=== PATIENT | male | born 1940 | race Caucasian/White ===

== ENCOUNTER 2018-10-26 11:38 | Observation (INO) ==
[2018-10-26] MEDS ORDERED: amLODIPine 10 MG Tablet PO ONE (12:42)
--- NOTE | 2018-10-26 12:49 | ED ---
HPI General Chief Complaint: Chest Pain Stated Complaint: Chest Pain/BP Complaint Time Seen by Provider: 10/26/18 12:24 History of Present Illness HPI narrative: This patient complains of chest discomfort. He had a sternal tightness and heaviness last night. There was a bit of discomfort in his left arm as well. He is not having that now. Symptoms are not exertional. He reports history of a cardiac stent. He had a stress test 2 years ago he says. No fever or productive cough or dyspnea. He does have some dyspepsia type issues. He is having a lot of belching and gas last night. Duration 15 hours. Severity is moderate. No alleviating factors. No exacerbating factors. Related Data Home Medications Medication Instructions Recorded Confirmed latanoprost 1 drp OPHTHALMIC (EYE) QPM 10/26/18 10/26/18 Allergies Allergy/AdvReac Type Severity Reaction Status Date / Time No Known Allergies Allergy Verified 10/26/18 11:44 Review of Systems ROS: all other systems reviewed are negative [facility] Medical History Medical History Patient denies medical problems (Acute) Surgical History Surgical History H/O heart artery stent (Acute) Social History Social History Substance History: No History of Abuse Smoking Status: Former smoker How Often Do You Have a Drink Containing Alcohol: Never Recent Travel in [facility] within the Last 8 Weeks: No Recent Out of Country Travel within the Last 8 Weeks: No Immunization History Tetanus Immunization: <5 Years Exam Narrative Exam Narrative: GENERAL: Well-nourished, well-developed patient in no apparent distress. SKIN: Focused skin assessment reveals no rash and nodules. Skin is Warm and dry. HEAD: Atraumatic. Normocephalic. EYES: Pupils equal and round. No scleral icterus. No injection or drainage. ENT: No nasal bleeding or discharge. Mucous membranes pink and moist. NECK: Trachea midline. No JVD. CARDIOVASCULAR: Regular rate and rhythm. No murmur appreciated. RESPIRATORY: No accessory muscle use. Clear to auscultation. Breath sounds equal bilaterally. GASTROINTESTINAL: Abdomen soft, non-tender, nondistended. Hepatic and splenic margins not palpable. MUSCULOSKELETAL: No obvious deformities. No clubbing. No cyanosis. No edema. NEUROLOGICAL: Awake and alert. No obvious cranial nerve deficits. Motor grossly within normal limits. Normal speech. PSYCHIATRIC: Appropriate mood and affect; insight and judgment normal. Course Initial Documented Vital Signs Temperature 97.1 F L 10/26/18 11:42 Pulse Rate 89 10/26/18 11:42 Respiratory Rate 18 10/26/18 11:42 Blood Pressure 216/93 H 10/26/18 11:42 Pulse Oximetry 99 10/26/18 11:42 Last Documented Vital Signs Temperature 97.1 F L 10/26/18 11:42 Pulse Rate 83 10/26/18 13:50 Respiratory Rate 18 10/26/18 13:48 Blood Pressure 178/82 H 10/26/18 13:48 Pulse Oximetry 99 10/26/18 13:51 Medical Decision Making MDM Narrative Medical decision making narrative: 78-year-old male with 15 hours of intermittent chest discomfort with some left arm involvement. EKG looks normal. Have ordered x-ray and labs. I am giving him aspirin. Work appears negative. His symptoms have resolved at this time. However he does have known coronary disease with some suspicious chest symptoms so will be a 23-hour observation in the chest pain center to rule out cardiac cause of his symptoms. Medical Screen Exam Complete: Yes Emergency Medical Condition: Yes Differential Diagnosis Differential Diagnosis: Differential diagnosis includes [place], angina, pericarditis , pleurisy, GERD, anxiety. Medical Records Medical records reviewed: Yes I reviewed the patient's medical records. Lab Data Lab results reviewed: Yes I reviewed the patient's lab results. Lab results narrative: Labs are normal Result diagrams: 10/26/18 13:23 10/26/18 13:23 Lab Results 10/26/18 10/26/18 10/26/18 Range/Units 13:23 13:23 13:23 WBC 4.9 (4.0-11.0) th/mm3 RBC 5.21 (4.50-5.90) mil/mm3 Hgb 15.6 (13.0-17.0) gm/dL Hct 46.1 (39.0-51.0) % MCV 88.5 (80.0-100.0) fL MCH 30.0 (27.0-34.0) pg MCHC 33.9 (32.0-36.0) % RDW 15.5 (11.6-17.2) % Plt Count 146 L (150-450) th/mm3 MPV 8.5 (7.0-11.0) fL Neut % (Auto) 50.8 (16.0-70.0) % Lymph % (Auto) 39.7 (9.0-44.0) % [place] % (Auto) 8.0 (0.0-8.0) % Eos % (Auto) 1.1 (0.0-4.0) % Baso % (Auto) 0.4 (0.0-2.0) % Neut # (Auto) 2.5 (1.8-7.7) th/mm3 Lymph # (Auto) 1.9 (1.0-4.8) th/mm3 [place] # (Auto) 0.4 (0.0-0.9) th/mm3 Eos # (Auto) 0.1 (0.0-0.4) th/mm3 Baso # (Auto) 0.0 (0.0-0.2) th/mm3 WBC Differential . Differential Comment Auto diff final PT (9.8-11.6) sec INR Ratio APTT (23.4-31.7) sec Sodium 143 (136-145) meq/L Potassium 3.7 (3.5-5.1) meq/L Chloride 106 (98-107) meq/L Carbon Dioxide 29.6 (21.0-32.0) meq/L Anion Gap 7 (5-15) meq/L BUN 12 (7-18) mg/dL Creatinine 0.96 (0.60-1.30) mg/dL Estimated GFR 76 L (>89) mL/min Random Glucose 88 (74-106) mg/dL Calcium 9.2 (8.5-10.1) mg/dL Total Bilirubin 1.0 (0.2-1.0) mg/dL AST 21 (15-37) U/L ALT 24 (12-78) U/L Alkaline Phosphatase 109 (45-117) U/L Total Creatine Kinase 87 (39-308) U/L Troponin I Less than 0.02 L (0.02-0.05) ng/mL Total Protein 7.7 (6.4-8.2) g/dL Albumin 4.5 (3.4-5.0) g/dL 10/26/18 Range/Units 13:23 WBC (4.0-11.0) th/mm3 RBC (4.50-5.90) mil/mm3 Hgb (13.0-17.0) gm/dL Hct (39.0-51.0) % MCV (80.0-100.0) fL MCH (27.0-34.0) pg MCHC (32.0-36.0) % RDW (11.6-17.2) % Plt Count (150-450) th/mm3 MPV (7.0-11.0) fL Neut % (Auto) (16.0-70.0) % Lymph % (Auto) (9.0-44.0) % [place] % (Auto) (0.0-8.0) % Eos % (Auto) (0.0-4.0) % Baso % (Auto) (0.0-2.0) % Neut # (Auto) (1.8-7.7) th/mm3 Lymph # (Auto) (1.0-4.8) th/mm3 [place] # (Auto) (0.0-0.9) th/mm3 Eos # (Auto) (0.0-0.4) th/mm3 Baso # (Auto) (0.0-0.2) th/mm3 WBC Differential Differential Comment PT 10.6 (9.8-11.6) sec INR 1.0 Ratio APTT 27.8 (23.4-31.7) sec Sodium (136-145) meq/L Potassium (3.5-5.1) meq/L Chloride (98-107) meq/L Carbon Dioxide (21.0-32.0) meq/L Anion Gap (5-15) meq/L BUN (7-18) mg/dL Creatinine (0.60-1.30) mg/dL Estimated GFR (>89) mL/min Random Glucose (74-106) mg/dL Calcium (8.5-10.1) mg/dL Total Bilirubin (0.2-1.0) mg/dL AST (15-37) U/L ALT (12-78) U/L Alkaline Phosphatase (45-117) U/L Total Creatine Kinase (39-308) U/L Troponin I (0.02-0.05) ng/mL Total Protein (6.4-8.2) g/dL Albumin (3.4-5.0) g/dL Imaging Data Attestation: I personally reviewed and interpreted this imaging study as follows : My impression: Chest x-ray is normal Radiologist's impression: Chest X-Ray 10/26/18 12:42 CONCLUSION: No acute cardiopulmonary disease. ECG Data EKG Prior to Arrival: No Attestation: I personally reviewed and interpreted this ECG as follows: Prior ECG tracings: not available for review Interpretation: EKG shows a sinus rhythm at 77. GA interval is 152 ms. [place] is normal. No ST elevation or ectopy Discharge Plan Discharge Disposition Patient Disposition: ED Admit(ED Internal Use Only) Discharge Details Diagnosis: Chest pain in adult Physicians Team ED Provider: Williams Quinteros Primary Care Provider: Kenn Izquierdo Rxs /Orders / Referrals /Forms Prescriptions: No Action latanoprost 0.005 % Drops 1 drp OPHTHALMIC (EYE) QPM RF: 0 Discharge Instructions Patient Printed Instructions: Chest Pain (ED) Discharge Interventions Interventions: Vital Signs Last Done: 10/26/18 13:44 Status ED Status: With Doctor
--- NOTE | 2018-10-26 13:45 | XR ---
EXAM DATE: 10/26/2018 1:34 PM EST AGE/SEX: 78 years / Male INDICATIONS: Chest pain. CLINICAL DATA: This is the patient's initial encounter. Patient reports that signs and symptoms have been present for 1 day and indicates a pain score of 0/10. MEDICAL/SURGICAL HISTORY: Hypertension. None. COMPARISON: No prior exams available for comparison. FINDINGS: The lungs are clear without infiltrate, nodule, or mass. There is no appreciable pleural effusion for technique. Heart and mediastinum are unremarkable. CONCLUSION: No acute cardiopulmonary disease. Electronically signed by: Tennille Oconnell MD Board Certified Radiologist 10/26/2018 1:43 PM EST
[2018-10-26 14:09] LABS: Baso % (Auto) 0.4 % (0.0-2.0); Eos # (Auto) 0.1 th/mm3 (0.0-0.4); Eos % (Auto) 1.1 % (0.0-4.0); Hematocrit 46.1 % (39.0-51.0); Hemoglobin 15.6 gm/dL (13.0-17.0); Lymph # (Auto) 1.9 th/mm3 (1.0-4.8); Lymph % (Auto) 39.7 % (9.0-44.0); Mean Corpuscular HGB Conc 33.9 % (32.0-36.0); Mean Corpuscular Volume 88.5 fL (80.0-100.0); Mean Platelet Volume 8.5 fL (7.0-11.0); Mono # (Auto) 0.4 th/mm3 (0.0-0.9); Neut # (Auto) 2.5 th/mm3 (1.8-7.7); Neut % (Auto) 50.8 % (16.0-70.0); Platelet Count 146 th/mm3 (150-450); Red Blood Count 5.21 mil/mm3 (4.50-5.90); Red Cell Distribution Width 15.5 % (11.6-17.2); White Blood Count 4.9 th/mm3 (4.0-11.0)
[2018-10-26 14:18] LABS: Activated Partial Thrombo Time 27.8 sec (23.4-31.7); Prothrombin Time 10.6 sec (9.8-11.6)
[2018-10-26 14:27] LABS: Albumin 4.5 g/dL (3.4-5.0); Anion Gap 7 meq/L (5-15); Aspartate Aminotransferase 21 U/L (15-37); Blood Urea Nitrogen 12 mg/dL (7-18); Calcium 9.2 mg/dL (8.5-10.1); Carbon Dioxide 29.6 meq/L (21.0-32.0); Chloride 106 meq/L (98-107); Glomerular Filtration Rate 76 mL/min (>89); Glucose,Random 88 mg/dL (74-106); Potassium 3.7 meq/L (3.5-5.1); Sodium 143 meq/L (136-145)
[2018-10-26 14:32] LABS: Alanine Aminotransferase 24 U/L (12-78); Alkaline Phosphatase 109 U/L (45-117); Total Protein 7.7 g/dL (6.4-8.2)
[2018-10-26] MEDS ORDERED: ALPRAZolam 0.25 MG Tablet PO PRN (16:19)
[2018-10-26] MEDS ORDERED: Acetaminophen 500 MG Tablet PO PRN (16:21)
[2018-10-26] MEDS ORDERED: Aluminum/Magnesium/Simethacone Susp 30 ML UDC PO ONE (16:21)
--- NOTE | 2018-10-26 16:29 | P.HPCA ---
History of Present Illness Primary Care Physician: Kenn Izquierdo DO Chief Complaint: Chest pain History of Present Illness: This is a 78-year-old male with history of CAD with stent about 15 years ago, past tobacco abuse, and gastric ulcers many years ago that presents to ED to evaluate for chest discomfort. States that yesterday while he was at home he began belching and then at the same time developed a central chest heaviness that is still there at this time. At the same time he also noticed some tingling in his left arm and hand this is continued to be intermittent ever since. He is found that belching does sometimes help the discomfort and also pressing on it does seem to help it at times. He was little nauseated. Denies shortness of breath or diaphoresis. States he has not seen a splicing technician in 3- 5 years. Has not had a stress test in 3-5 years. States he had a stent about 15 years ago and Peg. States at that time he was seeing a splicing technician but really does not know why. He states that he had a calcium score which was found to be high which led to a cardiac catheterization. He states 1 of the arteries were stented and another one had a 60% blockage and medical management was utilized however he cannot recall ever being on a cholesterol medicine. Cannot recall ever being on beta-kwasi. States that eyedrops are the only medication he takes currently. Past medical history: Stated history of CAD with stent about 15 years ago. Past tobacco abuse. History of gastric ulcer. Denies hypertension, hyperlipidemia, diabetes. Family history: Denies family history of CAD. Social history: Patient quit smoking 40 years ago but prior to that he smoked 1/ 2-2 pack of series daily for 15-20 years. Denies alcohol or illicit drug use. He is . - Diagnosis (1) Chest pain (2) CAD (coronary artery disease) (3) History of heart artery stent Review of Systems General: Patient denies fevers, chills, and recent travel. HEENT: Patient denies headache, sore throat, difficulty swallowing. Cardiovascular: Has the chest discomfort as mentioned above. Denies sensation of heart beating rapidly or irregularly. No syncope. Denies diaphoresis. Respiratory: Denies shortness of breath or inspirational chest discomfort. Denies coughing wheezing or hemoptysis. GI: He was nauseous. He continues to belch. Patient denies vomiting, diarrhea , abdominal pain, bloody stools. Musculoskeletal: Patient denies joint pain or edema. Denies calf pain or edema. Neurovascular: Patient denies numbness, tingling, weakness in extremities. Denies headache. Endocrine: Denies polyuria and polydipsia. Hematologic: Denies easy bruising. Skin: Denies rash or itching. PMFSH - History History Provided By: Patient - Medical History Medical History: Medical History (Last Reviewed 10/26/18 @ 12:48 by Williams Quinteros MD) Patient denies medical problems - Surgical History Surgical History: Surgical History (Last Reviewed 10/26/18 @ 12:48 by Williams Quinteros MD) H/O heart artery stent - Tobacco History Smoking Status: Former smoker - Alcohol History How Often Do You Have a Drink Containing Alcohol: Never - Substance Use History Substance History: No History of Abuse - Travel History Recent Travel in the [facility] Within the Last 8 Weeks: No Recent Travel Out of the Country Within the Last 8 Weeks: No - Immunization History Tetanus Immunization: <5 Years Medications and Allergies Active Medications: Active Medications Acetaminophen (Tylenol) 500 mg PO Q6H PRN PRN Reason: pain scale 1-5 Hydrocodone Bitart/Acetaminophen ([place] 7.5/325) 1 tab PO Q6H PRN PRN Reason: pain scale 6-10 Al Hydrox/Mg Hydrox/Simethicone (Mag-Al Plus Susp Liq) 30 ml PO ONCE ONE Stop: 10/26/18 16:22 Albuterol (Duoneb Neb (Prn)) 1 ampul NEB Q4HR NEB PRN PRN Reason: SHORTNESS OF BREATH/WHEEZING Alprazolam (Xanax) 0.25 mg PO Q8H PRN PRN Reason: ANXIETY Aspirin (Aspirin) 325 mg PO DAILY DEEPTI Clonidine HCl (Catapres) 0.1 mg PO Q6H PRN PRN Reason: SBP >165 OR DBP > 110 Ondansetron HCl (Zofran Inj) 4 mg IV.PUSH Q6H PRN PRN Reason: NAUSEA Pantoprazole Sodium (Protonix) 40 mg PO DAILY DEEPTI Sodium Chloride (Ns Flush) 2 ml IV.FLUSH UNSCH PRN PRN Reason: FLUSH AFTER USING IV ACCESS Sodium Chloride (Ns Flush) 2 ml IV.FLUSH BID DEEPTI Sodium Chloride (Ns Flush) 2 ml IV.FLUSH PRN PRN PRN Reason: FLUSH AFTER USING IV ACCESS Allergies Allergy/AdvReac Type Severity Reaction Status Date / Time No Known Allergies Allergy Verified 10/26/18 11:44 Home Medications Medication Instructions Recorded Confirmed Type latanoprost 1 drp OPHTHALMIC (EYE) QPM 10/26/18 10/26/18 History Exam Vital signs: Vital Signs 10/26/18 11:42 10/26/18 11:44 10/26/18 13:44 Temperature 97.1 F L Pulse Rate 89 80 63 Respiratory Rate 18 17 18 Blood Pressure 216/93 H 189/87 H 178/82 H Pulse Oximetry 99 100 100 10/26/18 13:48 10/26/18 13:50 10/26/18 13:51 Temperature Pulse Rate 83 83 Respiratory Rate 18 Blood Pressure 178/82 H Pulse Oximetry 99 99 10/26/18 15:23 Temperature Pulse Rate 65 Respiratory Rate 16 Blood Pressure 177/82 H Pulse Oximetry 100 Intake & Output 10/25/18 10/26/18 10/26/18 18:59 06:59 18:59 Weight 59.874 kg Narrative: GENERAL: This is a well-nourished, well-developed patient, in no apparent distress. Patient speaks in clear complete sentences. Patient is pleasant. HEENT: Head is atraumatic and normocephalic. Neck is supple without lymphadenopathy and trachea is midline. No JVD or carotid bruits. CARDIOVASCULAR: Grade 2 systolic murmur left sternal border. Regular rate and rhythm without gallops or rubs. RESPIRATORY: Clear to auscultation. Breath sounds equal bilaterally. No wheezes , rales, or rhonchi. Chest wall is nontender. No use of accessory muscles. GASTROINTESTINAL: Abdomen is nontender, nondistended. Abdomen soft. No obvious pulsatile mass or bruit. No CVA tenderness. Strong femoral pulses bilaterally. Normal bowel sounds in all quadrants. MUSCULOSKELETAL: Patient is moving upper and lower extremities freely. No calf tenderness or edema, no Homans sign. Strong pulses in upper and lower extremities. NEUROLOGICAL: Patient is alert and oriented. Cranial nerves 2-12 are grossly intact. No focal deficits and speech is clear. SKIN: No rash and turgor is normal. Results 10/26/18 13:23 10/26/18 13:23 Cardiac Enzymes 10/26/18 Range/Units 13:23 AST 21 (15-37) U/L Troponin I Less than 0.02 L (0.02-0.05) ng/mL Coagulation 10/26/18 Range/Units 13:23 PT 10.6 (9.8-11.6) sec APTT 27.8 (23.4-31.7) sec CBC 10/26/18 Range/Units 13:23 WBC 4.9 (4.0-11.0) th/mm3 RBC 5.21 (4.50-5.90) mil/mm3 Hgb 15.6 (13.0-17.0) gm/dL Hct 46.1 (39.0-51.0) % Plt Count 146 L (150-450) th/mm3 Neut # (Auto) 2.5 (1.8-7.7) th/mm3 Lymph # (Auto) 1.9 (1.0-4.8) th/mm3 [place] # (Auto) 0.4 (0.0-0.9) th/mm3 Eos # (Auto) 0.1 (0.0-0.4) th/mm3 Baso # (Auto) 0.0 (0.0-0.2) th/mm3 Comprehensive Metabolic Panel 10/26/18 Range/Units 13:23 Sodium 143 (136-145) meq/L Potassium 3.7 (3.5-5.1) meq/L Chloride 106 (98-107) meq/L Carbon Dioxide 29.6 (21.0-32.0) meq/L BUN 12 (7-18) mg/dL Creatinine 0.96 (0.60-1.30) mg/dL Calcium 9.2 (8.5-10.1) mg/dL AST 21 (15-37) U/L ALT 24 (12-78) U/L Alkaline Phosphatase 109 (45-117) U/L Total Protein 7.7 (6.4-8.2) g/dL Albumin 4.5 (3.4-5.0) g/dL Intake and Output 10/26/18 10/26/18 10/26/18 06:59 14:59 22:59 Other: Weight 59.874 kg Patient Weight 10/27/18 06:59 Weight 59.874 kg - Imaging and Cardiology Imaging: Impressions Chest X-Ray 10/26/18 12:42 CONCLUSION: No acute cardiopulmonary disease. EKG interpretations - EKG EKG shows: sinus rhythm (Initial EKG is sinus rhythm without significant ST segment depressions or elevations.) Caprini VTE Risk Assessment Caprini VTE Risk Assessment: Moderate/High Risk (score >= 2) Caprini Risk Assessment Model: Point Value = 1 Point Value = 2 Point Value = 3 Point Value = 5 Age 41-60 Minor surgery BMI > 25 kg/m2 Swollen legs Varicose veins or History of unexplained or recurrent spontaneous Oral contraceptives or hormone replacement Sepsis (< 1 month) Serious lung disease, including pneumonia (< 1 month) Abnormal pulmonary function Acute myocardial infarction Congestive heart failure (< 1 month) History of inflammatory bowel disease Medical patient at bed rest Age 61-74 Arthroscopic surgery Major open surgery (> 45 min) Laparoscopic surgery (> 45 min) Malignancy Confined to bed (> 72 hours) Immobilizing plaster cast Central venous access Age >= 75 History of VTE Family history of VTE Factor V Leiden Prothrombin [id number] Lupus anticoagulant Anticardiolipin antibodies Elevated serum homocysteine Heparin-induced thrombocytopenia Other congenital or acquired thrombophilia Stroke (< 1 month) Elective arthroplasty Hip, pelvis, or leg fracture Acute spinal cord injury (< 1 month) Prophylaxis Regimen: Total Risk Factor Score Risk Level Prophylaxis Regimen 0-1 Low Early ambulation 2 Moderate Order ONE of the following: *Sequential Compression Device (SCD) *Heparin 5000 units SQ BID 3-4 Higher Order ONE of the following medications: *Heparin 5000 units SQ TID *Enoxaparin/Lovenox 40 mg SQ daily (WT < 150 kg, CrCl > 30 mL/min) *Enoxaparin/Lovenox 30 mg SQ daily (WT < 150 kg, CrCl > 10-29 mL/min) *Enoxaparin/Lovenox 30 mg SQ BID (WT < 150 kg, CrCl > 30 mL/min) AND/OR *Sequential Compression Device (SCD) 5 or more Highest Order ONE of the following medications: *Heparin 5000 units SQ TID (Preferred with Epidurals) *Enoxaparin/Lovenox 40 mg SQ daily (WT < 150 kg, CrCl > 30 mL/min) *Enoxaparin/Lovenox 30 mg SQ daily (WT < 150 kg, CrCl > 10-29 mL/min) *Enoxaparin/Lovenox 30 mg SQ BID (WT < 150 kg, CrCl > 30 mL/min) AND *Sequential Compression Device (SCD) Assessment and Plan - Assessment (1) Chest pain Code(s): R07.9 - Chest pain, unspecified Status: Acute (2) CAD (coronary artery disease) Code(s): I25.10 - Atherosclerotic heart disease of [place] coronary artery without angina pectoris Status: Acute (3) History of heart artery stent Code(s): Z95.5 - Presence of coronary angioplasty implant and graft Status: Acute - Plan * Chest pain: Patient will continue to have serial cardiac enzymes and EKGs for ruling out purposes. He will be seen by Dr. Parada of cardiology in the chest pain center in the morning. He will likely undergo Lexiscan if ruled out. He will be discharged home if his stress test is nonischemic with instructions to follow-up with PCP. Blood pressure was elevated upon arrival in the ED, will continue to monitor. He states his blood pressures always were normal and that he checks it regularly. He will need to follow-up with his PCP. Return to ED for interval issues. * History of CAD: Patient states he had a stent. This will likely be reassessed with stress testing. He will need follow-up with PCP and cardiology. He needs to discuss being on medical management with history of heart disease. He currently is not on statin therapy or beta-kwasi. He does not take aspirin regularly either. Patient is stable at this time. He is agreeable to this plan.
[2018-10-26 17:50] LABS: Creatine Kinase 67 U/L (39-308)
[2018-10-26 22:06] LABS: Creatine Kinase 60 U/L (39-308)
[2018-10-27] MEDS: Aspirin 325 MG Tablet PO SCH ×2 (08:03→08:11)
[2018-10-27 08:09] VITALS: RESP 20
[2018-10-27] MEDS ORDERED: Regadenoson Inj 0.4 MG/5 ML Syringe IV.PUSH ONE (09:30)
--- NOTE | 2018-10-27 10:56 | TR ---
Date Performed: 10/27/2018 Time Performed: 09:56:51 DOCTOR: Geovani Parada DRUG LIST: CLINICAL HISTORY: REASON FOR TEST: REASON FOR ENDING: OBSERVATION: CONCLUSION: COMMENTS: Lexiscan stress test was performed under standard four minute protocol. Radionuclide was injected one minute prior to ending the test. No electrocardiographic abormalities were present t o suggest ischemia. Nuclear imaging and interpretation are pending.
--- NOTE | 2018-10-27 11:00 | ECG ---
Date Performed: 10/26/2018 Time Performed: 21:35:50 PTAGE: 78 years EKG: SINUS BRADYCARDIA WITH SINUS ARRHYTHMIA BORDERLINE ECG INTERPRETATION BASED ON A DEFAULT AG E OF 40 YEARS PREVIOUS TRACING : 10/26/2018 16.57 Since previous tracing, no significant change noted DOCTOR: Geovani Parada Interpretating Date/Time 10/27/2018 10:59:18
--- NOTE | 2018-10-27 11:00 | ECG ---
Date Performed: 10/26/2018 Time Performed: 16:57:12 PTAGE: 78 years EKG: Sinus rhythm NORMAL ECG PREVIOUS TRACING : 10/26/2018 11.54 Since previous tracing, no significant change noted DOCTOR: Geovani Parada Interpretating Date/Time 10/27/2018 10:59:36
--- NOTE | 2018-10-27 11:00 | ECG ---
Date Performed: 10/26/2018 Time Performed: 11:54:11 PTAGE: 78 years EKG: Sinus rhythm NORMAL ECG INTERPRETATION BASED ON A DEFAULT AGE OF 40 YEARS NO PREVIOUS TRACING DOCTOR: Geovani Parada Interpretating Date/Time 10/27/2018 10:59:51
--- NOTE | 2018-10-27 11:07 | NM ---
EXAM DATE: 10/27/2018 10:45 AM EST AGE/SEX: 78 years / Male INDICATIONS:Angina. Coronary artery disease Chest pain. CLINICAL DATA: This is the patient's initial encounter. Patient reports that signs and symptoms have been present for 1 day and indicates a pain score of 2/10. MEDICAL/SURGICAL HISTORY: Hypertension. Coronary artery stent. COMPARISON: No prior exams available for comparison. DOSE: 8.1 mCi Tc 99m Myoview at rest 26.2 mCi [id number] at stress 0.4 mg Lexiscan STRESS SYMPTOMS: None. EJECTION FRACTION: >70 % TECHNIQUE: The patient underwent pharmacologic stress with infusion of prescribed dose. Continuous ECG tracing was monitored during stress. Gated SPECT imaging was performed after stress and conventi onal SPECT imaging was performed at rest. The examination was performed on a SPECT/CT scanner, both attenuation and non-corrected datasets were reviewed. FINDINGS: Distribution: The maximum perfused segment at stress is in the anteroseptal wall. Perfusion Study: The pattern of perfusion at stress is within normal limits. Fragmented attenuation artifact is identified. Gated Study: There are intact wall motion and wall thickening without hypokinetic or dyskinetic segm ents. The ejection fraction is calculated at >70%. RISK CATEGORY: Low (<1% Annual Mortality Rate) CONCLUSION: 1. No significant ischemia. Electronically signed by: Tennille Oconnell MD Board Certified Radiologist 10/27/2018 11:06 AM EST
[2018-10-27 11:59] VITALS: BP 155/70; PULSE 83; TEMP 96.1; O2SAT 98
== END 2018-10-27 13:00 | disposition home or self-care (01) ==
LOC: NEPC 11:38 → NEDA 11:38 → NEPHCDU 17:15
CPT/HCPCS: 71010; 71045; 78452; 80053; 82550; 84484; 85025; 85610; 85730; 93005; 93017; 99285; A9502; G0378; J2785; Q9969